=== PATIENT | male | born 1955 | race Caucasian/White ===

== ENCOUNTER → 2016-04-08 | Outpatient (CLI) | payer MEDICARE, OTHER ==
[~2016-04-08] MED LIST: ACTOS30 MG PO; CENTRUM SILVER1 CTB PO; CENTRUM SILVER1 TA1 PO; COREG 3.123.125 MG/T PO; COUMADIN 1010 MG/TAB PO; COUMADIN 5MG5 MG/TAB PO; COUMADIN 77.5 MG/TAB PO; COZAAR 50MG50 MG/TAB PO; DARVOCET N 101 UDTAB PO; DARVOCET-N-101 UDTAB PO; FERROUS SU325 MG/TAB PO; FIBER0.52 GM PO; FISH OIL CONC1000 MG PO; GLUCOPHAGE1000 MG PO; GLUCOSAMINE/CHONDROI PO; GLUCOTROL 5M5 MG/TAB PO; HUMALOG100 U/ML SQ; HUMIRA40 MG/0.1 SC; HUMIRA40 MG/0.8 SQ; HUMULIN R 10100 U/ML SC; JANUVIA 100MG100 MG PO; LANTUS100 U/ML SQ; LIPITOR 10MG10 MG PO; LOPRESSOR 550 MG/TAB PO; LUTEIN20 M1 PO; LUTEIN8MG PO; MAREPA1200 MG PO; METAMUCIL FIBE1 EACH PO; METAMUCIL MUL0.52 GM PO; METFORMIN500 MG PO; NESINA PO; PRILOSEC 20MG20 MG PO; REMICADE V100 MG/VIA IV; TYLENOL 8 HR PO; ULTRAM 50MG TAB50 MG PO; ULTRAM50 MG PO; VITAMIN B COMPL1 T16 PO; VITAMIN B-1000 MCG/T PO; VITAMIN C BUFF500 MG PO; VITAMIN C1 TAB PO; VITAMIN C500 MG PO; VITAMIN D1000 IU PO; VITAMIN D2000 I1 PO; VITAMIN D31000 I1 PO; ZESTRIL 5MG5 MG PO; ZOCOR 20MG20 MG PO
== END ==
LOC: SUN.DIA 10:30
DX: E11.65 Type 2 diabetes mellitus with hyperglycemia (principal); Z79.84 Long term (current) use of oral hypoglycemic drugs; Z79.4 Long term (current) use of insulin; E66.9 Obesity, unspecified; Z71.3 Dietary counseling and surveillance; E78.5 Hyperlipidemia, unspecified; I10 Essential (primary) hypertension; K51.90 Ulcerative colitis, unspecified, without complications; I73.9 Peripheral vascular disease, unspecified; M06.9 Rheumatoid arthritis, unspecified

== ENCOUNTER → 2016-05-19 | Outpatient (CLI) | payer MEDICARE, OTHER ==
[2016-05-19 14:23] LABS: INR 2.6 (0.8-3.0); PROTHROMBIN TIME 29.3 SECONDS (9.7-12.8)
== END ==
LOC: COL.LAB 13:36
PROVIDERS: Internal Medicine Interventional Cardiology
DX: R60.0 Localized edema (principal)

== ENCOUNTER 2016-05-22 06:33 | Observation (INO) | payer MEDICARE, OTHER ==
[2016-05-22] VITALS (155 sets, daily range): PULSE 82; TEMP 98.4; O2SAT 91–100
[~2016-05-22] VITALS: Ht 170.2 cm; Wt 119.1 kg
[~2016-05-22 06:33] MED LIST changes: -CENTRUM SILVER1 CTB PO; -COZAAR 50MG50 MG/TAB PO; -FIBER0.52 GM PO; -GLUCOPHAGE1000 MG PO; -HUMIRA40 MG/0.8 SQ; -LUTEIN20 M1 PO; -LUTEIN8MG PO; -METAMUCIL FIBE1 EACH PO; -METAMUCIL MUL0.52 GM PO; -TYLENOL 8 HR PO; -VITAMIN D1000 IU PO; -VITAMIN D31000 I1 PO
[2016-05-22 07:05] LABS: BASO # 0.1 (0.0-0.2); BASO % 0.7 % (0.0-2.0); EOS # 0.3 (0.0-0.7); EOS % 3.1 % (0-4.0); GRAN # 5.6 (1.4-6.5); GRAN % 69.4 % (42.2-75.2); HEMATOCRIT 38.5 % (42.0-52.0); HEMOGLOBIN 12.4 g/dl (13.5-18.0); LYMPH # 1.4 (1.2-3.4); LYMPH % 17.3 % (20.0-51.0); MEAN CELL VOLUME 95 fl (80.0-100.0); MEAN CORPUSCULAR HEMOGLOBIN 31 pg (27.0-31.0); MEAN CORPUSCULAR HGB CONC 32 g/dl (33.0-37.0); MEAN PLATELET VOLUME 9.8 fl (7.4-10.4); MONO # 0.7 (0.1-0.6); MONO % 8.9 % (1.7-9.3); PLATELET COUNT 255 K/mm3 (130-400); RED BLOOD COUNT 4.04 M/mm3 (4.20-5.60); REDCELL DISTRIBUTION WIDTH-CV 13.4 % (11.5-14.5); WHITE BLOOD COUNT 8.1 K/mm3 (4.8-10.8)
[2016-05-22 07:10] LABS: INR 1.9 (0.8-3.0); PROTHROMBIN TIME 21.4 SECONDS (9.7-12.8)
[2016-05-22 07:15] LABS: CALCIUM 9.2 mg/dL (8.4-10.2); CREATININE, serum 0.94 mg/dL (0.66-1.25); POTASSIUM 4.3 mmol/L (3.4-5.0)
[2016-05-22] MEDS ORDERED: VITAMIN D1000 IU PO (07:30)
[2016-05-22] MEDS ORDERED: LUTEIN8MG PO (07:35)
[2016-05-22] MEDS ORDERED: FIBER0.52 GM PO (07:36)
[2016-05-22] MEDS ORDERED: TYLENOL 8 HR PO (07:36)
== END 2016-05-22 09:30 | disposition left against medical advice (07) ==
LOC: ICU 06:33
PROVIDERS: Internal Medicine Interventional Cardiology
DX: I82.402 Acute embolism and thrombosis of unspecified deep veins of left lower extremity (principal)
CPT/HCPCS: G0378; G0379

== ENCOUNTER → 2016-07-14 | Outpatient (CLI) | payer MEDICARE, OTHER ==
[~2016-07-14] MED LIST changes: +CENTRUM SILVER1 CTB PO; +COZAAR 50MG50 MG/TAB PO; +FIBER0.52 GM PO; +GLUCOPHAGE1000 MG PO; +HUMIRA40 MG/0.8 SQ; +LUTEIN20 M1 PO; +LUTEIN8MG PO; +METAMUCIL FIBE1 EACH PO; +METAMUCIL MUL0.52 GM PO; +TYLENOL 8 HR PO; +VITAMIN D1000 IU PO; +VITAMIN D31000 I1 PO
== END ==
LOC: SUN.DIA 07-01 16:04
DX: E11.65 Type 2 diabetes mellitus with hyperglycemia (principal); E66.9 Obesity, unspecified; Z68.41 Body mass index [BMI] 40.0-44.9, adult; Z71.3 Dietary counseling and surveillance; E78.5 Hyperlipidemia, unspecified; I10 Essential (primary) hypertension

== ENCOUNTER → 2016-10-01 | Outpatient (CLI) | payer MEDICARE, OTHER | LOC: SUN.DIA 09:30 | DX: E11.9 Type 2 diabetes mellitus without complications (principal); Z79.4 Long term (current) use of insulin; E78.5 Hyperlipidemia, unspecified; I10 Essential (primary) hypertension; E66.9 Obesity, unspecified; Z68.41 Body mass index [BMI] 40.0-44.9, adult; Z71.3 Dietary counseling and surveillance | CPT/HCPCS: G0108 ==

== ENCOUNTER 2016-12-02 08:32 | Day surgery (SDC) | payer MEDICARE, OTHER ==
[~2016-12-02] VITALS: Ht 170.2 cm; Wt 122.5 kg
[~2016-12-02 08:32] MED LIST changes: -CENTRUM SILVER1 CTB PO; -COZAAR 50MG50 MG/TAB PO; -GLUCOPHAGE1000 MG PO; -HUMIRA40 MG/0.8 SQ; -LUTEIN20 M1 PO; -METAMUCIL FIBE1 EACH PO; -METAMUCIL MUL0.52 GM PO; -VITAMIN D31000 I1 PO
[2016-12-02 09:01] VITALS: BP 147/81; PULSE 74; TEMP 97.8
[2016-12-02] MEDS ORDERED: HUMIRA40 MG/0.8 SQ (09:13)
[2016-12-02] MEDS ORDERED: HUMALOG100 U/ML SQ ×2 (09:14→09:15)
[2016-12-02] MEDS ORDERED: LANTUS100 U/ML SQ (09:26)
[2016-12-02] MEDS ORDERED: METAMUCIL FIBE1 EACH PO (09:28)
[2016-12-02] MEDS ORDERED: TYLENOL 8 HR PO (09:28)
[2016-12-02] MEDS ORDERED: METAMUCIL MUL0.52 GM PO (09:29)
[2016-12-02] MEDS ORDERED: CENTRUM SILVER1 CTB PO (09:29)
[2016-12-02] MEDS ORDERED: VITAMIN D31000 I1 PO (09:31)
[2016-12-02] MEDS ORDERED: VITAMIN C500 MG PO (09:31)
[2016-12-02] MEDS ORDERED: LOPRESSOR 550 MG/TAB PO (09:32)
[2016-12-02] MEDS ORDERED: GLUCOPHAGE1000 MG PO (09:32)
[2016-12-02] MEDS ORDERED: COUMADIN 5MG5 MG/TAB PO (09:33)
[2016-12-02] MEDS ORDERED: COUMADIN 77.5 MG/TAB PO (09:34)
[2016-12-02] MEDS ORDERED: COZAAR 50MG50 MG/TAB PO (09:35)
[2016-12-02] MEDS ORDERED: ZOCOR 20MG20 MG PO (09:36)
[2016-12-02] MEDS ORDERED: LUTEIN20 M1 PO (09:36)
[2016-12-02] MEDS ORDERED: PRILOSEC 20MG20 MG PO (09:36)
[2016-12-02 11:50] VITALS: BP 133/78; PULSE 81
[2016-12-02 12:05] VITALS: BP 120/73; PULSE 79
[2016-12-02 12:20] VITALS: BP 130/83; PULSE 84
[2016-12-02 16:18] VITALS: BP 130/86; PULSE 80
== END 2016-12-02 12:40 | disposition home or self-care (01) ==
LOC: SDCO 08:32
DX: K63.5 Polyp of colon (principal); K51.00 Ulcerative (chronic) pancolitis without complications; K64.0 First degree hemorrhoids; K21.9 Gastro-esophageal reflux disease without esophagitis; E11.9 Type 2 diabetes mellitus without complications; G47.33 Obstructive sleep apnea (adult) (pediatric); Z79.01 Long term (current) use of anticoagulants; Z79.4 Long term (current) use of insulin; Z79.84 Long term (current) use of oral hypoglycemic drugs
CPT/HCPCS: OP; J2250; J2704; J7030

== ENCOUNTER → 2017-01-05 | Outpatient (CLI) | payer MEDICARE, OTHER ==
[~2017-01-05] MED LIST changes: +CENTRUM SILVER1 CTB PO; +COZAAR 50MG50 MG/TAB PO; +GLUCOPHAGE1000 MG PO; +HUMIRA40 MG/0.8 SQ; +LUTEIN20 M1 PO; +METAMUCIL FIBE1 EACH PO; +METAMUCIL MUL0.52 GM PO; +VITAMIN D31000 I1 PO
== END ==
LOC: SUN.DIA 12-30 09:26
DX: E11.9 Type 2 diabetes mellitus without complications (principal); Z79.4 Long term (current) use of insulin; E78.5 Hyperlipidemia, unspecified; I10 Essential (primary) hypertension; E66.9 Obesity, unspecified; Z68.41 Body mass index [BMI] 40.0-44.9, adult; Z71.3 Dietary counseling and surveillance
CPT/HCPCS: G0108

== ENCOUNTER → 2017-03-02 | Outpatient (CLI) | payer MEDICARE, OTHER | LOC: SUN.DIA 08:43 | DX: E11.9 Type 2 diabetes mellitus without complications (principal); Z79.4 Long term (current) use of insulin; E78.5 Hyperlipidemia, unspecified; I10 Essential (primary) hypertension; E66.9 Obesity, unspecified; Z68.41 Body mass index [BMI] 40.0-44.9, adult; Z71.3 Dietary counseling and surveillance | CPT/HCPCS: G0108 ==

== ENCOUNTER → 2017-05-04 | Outpatient (CLI) | payer MEDICARE, OTHER | LOC: SUN.DIA 10:34 | DX: E11.9 Type 2 diabetes mellitus without complications (principal); Z79.4 Long term (current) use of insulin; E78.5 Hyperlipidemia, unspecified; I10 Essential (primary) hypertension; E66.9 Obesity, unspecified; Z68.41 Body mass index [BMI] 40.0-44.9, adult; Z71.3 Dietary counseling and surveillance | CPT/HCPCS: G0108 ==

== ENCOUNTER 2017-05-13 20:55 | Emergency (ER) | payer MEDICARE, OTHER ==
[~2017-05-13] VITALS: Ht 170.2 cm; Wt 118.2 kg
[2017-05-13 21:10] VITALS: TEMP 98.7
[2017-05-13 22:02] LABS: BASO # 0.1 (0.0-0.2); BASO % 0.5 % (0.0-2.0); EOS # 0.2 (0.0-0.7); EOS % 2.4 % (0-4.0); GRAN # 5.5 (1.4-6.5); GRAN % 56.5 % (42.2-75.2); HEMATOCRIT 41.3 % (42.0-52.0); HEMOGLOBIN 13.2 g/dl (13.5-18.0); LYMPH # 2.9 (1.2-3.4); LYMPH % 29.8 % (20.0-51.0); MEAN CELL VOLUME 91 fl (80.0-100.0); MEAN CORPUSCULAR HEMOGLOBIN 29 pg (27.0-31.0); MEAN CORPUSCULAR HGB CONC 32 g/dl (33.0-37.0); MEAN PLATELET VOLUME 9.9 fl (7.4-10.4); MONO % 10.1 % (1.7-9.3); PLATELET COUNT 298 K/mm3 (130-400); RED BLOOD COUNT 4.53 M/mm3 (4.20-5.60); REDCELL DISTRIBUTION WIDTH-CV 14.2 % (11.5-14.5)
[2017-05-13 22:08] LABS: COLLECTION METHOD CLEAN CATCH
[2017-05-13 22:09] LABS: ACETONE,SERUM NEGATIVE
[2017-05-13 22:13] LABS: INR 2.3 (0.8-3.0); PROTHROMBIN TIME 27.5 SECONDS (9.7-12.8)
[2017-05-13 22:15] LABS: ALANINE AMINOTRANSFERASE 39 U/L (21-72); ALBUMIN 4.5 gm/dL (3.5-5.0); ALKALINE PHOSPHATASE 70 U/L (50-136); ANION GAP 17 mmol/L (7-16); AST,SGOT 31 U/L (15-37); BILIRUBIN,TOTAL 0.4 mg/dL (0.0-1.0); BLOOD UREA NITROGEN 17 mg/dL (9-20); CALCIUM 9.8 mg/dL (8.4-10.2); CARBON DIOXIDE 19 mmol/L (22-30); CHLORIDE 99 mmol/L (98-107); CREATININE, serum 1.09 mg/dL (0.66-1.25); GLUCOSE 197 mg/dL (74-106); LIPASE 60 U/L (23-300); POTASSIUM 4.3 mmol/L (3.4-5.0); SODIUM 135 mmol/L (137-145); TOTAL PROTEIN 7.9 gm/dL (6.4-8.2)
[2017-05-13 22:46] LABS: PH 5 (5-8); SQUAMOUS EPITHELIAL 0-2 /hpf; URINE APPEARANCE Clear; URINE BILIRUBIN Negative (NEGATIVE); URINE BLOOD Negative (NEGATIVE); URINE COLOR Yellow; URINE GLUCOSE 3+ (NEGATIVE); URINE KETONE Trace (NEGATIVE); URINE LEUKOCYTE ESTERASE Negative (NEGATIVE); URINE NITRATE Negative (NEGATIVE); URINE PROTEIN(semi-quant) 1+ (NEGATIVE); URINE RBC 0-2 /hpf; URINE UROBILINOGEN Negative (NEGATIVE)
[2017-05-13 22:47] LABS: MUCOUS Present /lpf; URINE BACTERIA Rare /hpf
[2017-05-13] MEDS ORDERED: COUMADIN 1010 MG/TAB PO (23:15)
[2017-05-13] MEDS ORDERED: COUMADIN 77.5 MG/TAB PO (23:15)
[2017-05-13] MEDS ORDERED: HUMALOG100 U/ML SQ (23:17)
[2017-05-13] MEDS ORDERED: LUTEIN20 M1 PO (23:18)
[2017-05-13] MEDS ORDERED: HUMIRA40 MG/0.8 SQ (23:18)
[2017-05-13] MEDS ORDERED: NORCO 325 MG-51 TAB PO (23:34)
[2017-05-13] MEDS ORDERED: ZOFRAN 4MG T4 MG/TAB PO (23:34)
[2017-05-14 00:16] VITALS: BP 128/81; PULSE 89
== END 2017-05-14 00:15 | disposition home or self-care (01) ==
LOC: COL.ER 20:55
PROVIDERS: Emergency Medicine
DX: R10.10 Upper abdominal pain, unspecified (principal); E11.9 Type 2 diabetes mellitus without complications; I10 Essential (primary) hypertension; E78.5 Hyperlipidemia, unspecified; K51.90 Ulcerative colitis, unspecified, without complications; Z86.711 Personal history of pulmonary embolism; Z86.718 Personal history of other venous thrombosis and embolism; Z79.01 Long term (current) use of anticoagulants; Z79.4 Long term (current) use of insulin
CPT/HCPCS: J3010; J7030

== ENCOUNTER → 2017-06-01 | Outpatient (CLI) | payer MEDICARE, OTHER ==
[~2017-06-01] MED LIST changes: +NORCO 325 MG-51 TAB PO; +ZOFRAN 4MG T4 MG/TAB PO
== END ==
LOC: SUN.DIA 10:11
DX: E11.9 Type 2 diabetes mellitus without complications (principal); Z79.4 Long term (current) use of insulin; E78.5 Hyperlipidemia, unspecified; I10 Essential (primary) hypertension; E66.9 Obesity, unspecified; Z68.41 Body mass index [BMI] 40.0-44.9, adult; Z71.3 Dietary counseling and surveillance
CPT/HCPCS: G0108

== ENCOUNTER → 2017-06-04 | Outpatient (CLI) | payer MEDICARE, OTHER | LOC: SUN.DIA 10:37 | DX: E11.9 Type 2 diabetes mellitus without complications (principal); Z79.4 Long term (current) use of insulin; E78.5 Hyperlipidemia, unspecified; I10 Essential (primary) hypertension; E66.9 Obesity, unspecified; Z68.41 Body mass index [BMI] 40.0-44.9, adult; Z71.3 Dietary counseling and surveillance | CPT/HCPCS: G0108 ==

== ENCOUNTER → 2017-06-17 | Outpatient (CLI) | payer MEDICARE, OTHER | LOC: SUN.DIA 09:31 | DX: Z01.89 Encounter for other specified special examinations (principal) ==

== ENCOUNTER → 2017-07-13 | Outpatient (CLI) | payer MEDICARE, OTHER | LOC: SUN.DIA 11:15 | DX: E11.9 Type 2 diabetes mellitus without complications (principal); Z79.4 Long term (current) use of insulin; E78.5 Hyperlipidemia, unspecified; I10 Essential (primary) hypertension; E66.9 Obesity, unspecified; Z68.41 Body mass index [BMI] 40.0-44.9, adult; Z71.3 Dietary counseling and surveillance | CPT/HCPCS: G0108 ==

== ENCOUNTER 2017-08-28 23:30 | Emergency (ER) | payer MEDICARE, OTHER ==
[~2017-08-28] VITALS: Ht 170.2 cm; Wt 118.2 kg
[~2017-08-28 23:30] MED LIST changes: +HUMIRA40 MG/0.1 SQ
[2017-08-28 23:35] VITALS: TEMP 97.2
[2017-08-28] MEDS ORDERED: DICLOFENAC SOD2.5 ML TOP (23:48)
[2017-08-28] MEDS ORDERED: DOXYCYCLINE HY100 MG PO (23:49)
[2017-08-28] MEDS ORDERED: BYDUREON PEN2 MG SQ (23:50)
[2017-08-28] MEDS ORDERED: MELATONIN5 M1 SL (23:53)
[2017-08-28] MEDS ORDERED: COUMADIN 5MG5 MG/TAB PO ×2 (23:55→23:56)
[2017-08-29 00:10] LABS: BASO # 0.1 (0.0-0.2); BASO % 0.4 % (0.0-2.0); EOS # 1.4 (0.0-0.7); EOS % 10.9 % (0-4.0); GRAN # 7.7 (1.4-6.5); GRAN % 61.5 % (42.2-75.2); HEMOGLOBIN 11.2 g/dl (13.5-18.0); LYMPH # 2.2 (1.2-3.4); LYMPH % 17.8 % (20.0-51.0); MEAN CELL VOLUME 90 fl (80.0-100.0); MEAN CORPUSCULAR HEMOGLOBIN 29 pg (27.0-31.0); MEAN CORPUSCULAR HGB CONC 33 g/dl (33.0-37.0); MEAN PLATELET VOLUME 9.2 fl (7.4-10.4); MONO # 1.1 (0.1-0.6); MONO % 8.4 % (1.7-9.3); PLATELET COUNT 283 K/mm3 (130-400); RED BLOOD COUNT 3.82 M/mm3 (4.20-5.60); REDCELL DISTRIBUTION WIDTH-CV 15.8 % (11.5-14.5)
[2017-08-29 00:12] LABS: HEMATOCRIT 34.5 % (42.0-52.0)
[2017-08-29 00:26] LABS: ALANINE AMINOTRANSFERASE 33 U/L (21-72); ALBUMIN 3.4 gm/dL (3.5-5.0); ALKALINE PHOSPHATASE 63 U/L (50-136); ANION GAP 14 mmol/L (7-16); AST,SGOT 25 U/L (15-37); BILIRUBIN,TOTAL 0.3 mg/dL (0.0-1.0); BLOOD UREA NITROGEN 17 mg/dL (9-20); C-REACTIVE PROTEIN 5.4 mg/dL (0.0-0.9); CARBON DIOXIDE 23 mmol/L (22-30); CHLORIDE 104 mmol/L (98-107); CREATININE, serum 0.83 mg/dL (0.66-1.25); GLUCOSE 154 mg/dL (74-106); LIPASE 32 U/L (23-300); POTASSIUM 4.1 mmol/L (3.4-5.0); SODIUM 141 mmol/L (137-145); TOTAL PROTEIN 7.1 gm/dL (6.4-8.2)
[2017-08-29 00:37] LABS: TROPONIN-I < 0.012 ng/mL (0.000-0.034)
[2017-08-29 00:42] LABS: PROTHROMBIN TIME 34.1 SECONDS (9.7-12.8)
[2017-08-29 00:45] LABS: D-DIMER < 200.00 ng/mLDDu (200-230)
[2017-08-29 01:01] LABS: COLLECTION METHOD CLEAN CATCH
[2017-08-29 01:06] LABS: MUCOUS Present /lpf; PH 5 (5-8); SQUAMOUS EPITHELIAL None Seen /hpf; URINE APPEARANCE Clear; URINE BACTERIA None Seen /hpf; URINE BILIRUBIN Negative (NEGATIVE); URINE BLOOD Negative (NEGATIVE); URINE COLOR Yellow; URINE GLUCOSE 3+ (NEGATIVE); URINE KETONE Negative (NEGATIVE); URINE LEUKOCYTE ESTERASE Negative (NEGATIVE); URINE NITRATE Negative (NEGATIVE); URINE PROTEIN(semi-quant) 1+ (NEGATIVE); URINE RBC 0-2 /hpf; URINE UROBILINOGEN Negative (NEGATIVE)
[2017-08-29 01:15] VITALS: BP 132/80; PULSE 98
[2017-08-29] MEDS ORDERED: NORCO 325 MG-51 TAB PO (01:15)
== END 2017-08-29 01:36 | disposition home or self-care (01) ==
LOC: COL.ER 23:30
PROVIDERS: Physician Assistant
DX: R10.31 Right lower quadrant pain (principal); E78.5 Hyperlipidemia, unspecified; E11.9 Type 2 diabetes mellitus without complications; I10 Essential (primary) hypertension; Z79.4 Long term (current) use of insulin; Z79.01 Long term (current) use of anticoagulants; Z86.718 Personal history of other venous thrombosis and embolism; Z86.711 Personal history of pulmonary embolism
CPT/HCPCS: J1170; J7030

== ENCOUNTER 2017-09-13 13:12 | Observation (INO) | payer MEDICARE, OTHER ==
[~2017-09-13] VITALS: Ht 170.2 cm; Wt 112.1 kg
[~2017-09-13 13:12] MED LIST changes: +BYDUREON PEN2 MG SQ; +DICLOFENAC SOD2.5 ML TOP; +DOXYCYCLINE HY100 MG PO; +MELATONIN5 M1 SL
[2017-09-13 13:39] LABS: BASO % 0.2 % (0.0-2.0); GRAN # 10.8 (1.4-6.5); GRAN % 75.4 % (42.2-75.2); HEMOGLOBIN 11.3 g/dl (13.5-18.0); LYMPH # 1.3 (1.2-3.4); LYMPH % 9.1 % (20.0-51.0); MEAN CELL VOLUME 90 fl (80.0-100.0); MEAN CORPUSCULAR HEMOGLOBIN 29 pg (27.0-31.0); MEAN CORPUSCULAR HGB CONC 32 g/dl (33.0-37.0); MEAN PLATELET VOLUME 9.3 fl (7.4-10.4); MONO # 1.2 (0.1-0.6); PLATELET COUNT 334 K/mm3 (130-400); RED BLOOD COUNT 3.88 M/mm3 (4.20-5.60); REDCELL DISTRIBUTION WIDTH-CV 15.9 % (11.5-14.5)
[2017-09-13 13:40] LABS: HEMATOCRIT 34.9 % (42.0-52.0)
[2017-09-13 13:45] LABS: INR 2.2 (0.8-3.0); PROTHROMBIN TIME 24.8 SECONDS (9.7-12.8)
[2017-09-13 13:50] LABS: ALBUMIN 3.8 gm/dL (3.5-5.0); BILIRUBIN,TOTAL 0.6 mg/dL (0.0-1.0); CALCIUM 9.3 mg/dL (8.4-10.2); CREATININE, serum 0.84 mg/dL (0.66-1.25); TOTAL PROTEIN 7.8 gm/dL (6.4-8.2)
[2017-09-13 14:01] LABS: ARTERIAL BLD GAS O2 SATURATION 93.3 % (92-100); ARTERIAL BLD GAS TCO2 CT 23.1; ARTERIAL BLOOD GAS BASE EXCESS -0.5 (-2-2); ARTERIAL BLOOD GAS HCO3 22.2 meq/L (22-26); ARTERIAL BLOOD GAS PCO2 30.5 mmHg (35-45); ARTERIAL BLOOD GAS pH 7.48 (7.35-7.45)
[2017-09-13 14:21] LABS: COLLECTION METHOD CLEAN CATCH
[2017-09-13 14:36] LABS: MUCOUS Present /lpf; PH 5 (5-8); SQUAMOUS EPITHELIAL None Seen /hpf; URINE APPEARANCE Clear; URINE BACTERIA None Seen /hpf; URINE BILIRUBIN Negative (NEGATIVE); URINE BLOOD Negative (NEGATIVE); URINE COLOR Yellow; URINE GLUCOSE Negative (NEGATIVE); URINE KETONE 1+ (NEGATIVE); URINE LEUKOCYTE ESTERASE Negative (NEGATIVE); URINE NITRATE Negative (NEGATIVE); URINE PROTEIN(semi-quant) 1+ (NEGATIVE); URINE RBC 0-2 /hpf; URINE UROBILINOGEN Negative (NEGATIVE)
[2017-09-13 16:41] VITALS: BP 145/76; PULSE 87; TEMP 99.2
[2017-09-13] MEDS ORDERED: ZOCOR 20MG20 MG PO (17:12)
[2017-09-13] MEDS ORDERED: PRILOSEC 20MG20 MG PO (17:12)
[2017-09-13] MEDS ORDERED: TOPROL XL 50MG50 MG PO (17:13)
[2017-09-13] MEDS ORDERED: VITAMIN C500 MG PO (17:14)
[2017-09-13] MEDS ORDERED: METAMUCIL MUL0.52 GM PO (17:14)
[2017-09-13 19:15] VITALS: BP 139/71; PULSE 96; TEMP 98.1
[2017-09-14] VITALS (7 sets, daily range): BP systolic 110–154; BP diastolic 58–85; PULSE 90–112; TEMP 97.6–100.2
[2017-09-14 06:43] LABS: BASO % 0.2 % (0.0-2.0); EOS # 1.2 (0.0-0.7); EOS % 9.2 % (0-4.0); GRAN # 9.1 (1.4-6.5); GRAN % 70.1 % (42.2-75.2); HEMOGLOBIN 10.7 g/dl (13.5-18.0); INR 2.1 (0.8-3.0); LYMPH # 1.5 (1.2-3.4); LYMPH % 11.6 % (20.0-51.0); MEAN CELL VOLUME 92 fl (80.0-100.0); MEAN CORPUSCULAR HEMOGLOBIN 29 pg (27.0-31.0); MEAN CORPUSCULAR HGB CONC 32 g/dl (33.0-37.0); MEAN PLATELET VOLUME 9.5 fl (7.4-10.4); MONO # 1.1 (0.1-0.6); MONO % 8.5 % (1.7-9.3); PLATELET COUNT 318 K/mm3 (130-400); PROTHROMBIN TIME 23.8 SECONDS (9.7-12.8); RED BLOOD COUNT 3.64 M/mm3 (4.20-5.60); REDCELL DISTRIBUTION WIDTH-CV 15.9 % (11.5-14.5)
[2017-09-14 06:50] LABS: HEMATOCRIT 33.4 % (42.0-52.0)
[2017-09-14 06:55] LABS: CALCIUM 8.5 mg/dL (8.4-10.2); CREATININE, serum 0.66 mg/dL (0.66-1.25); POTASSIUM 3.8 mmol/L (3.4-5.0)
[2017-09-15 04:26] VITALS: BP 149/73; PULSE 109; TEMP 99.2
[2017-09-15 06:43] LABS: BASO % 0.2 % (0.0-2.0); EOS # 1.4 (0.0-0.7); EOS % 12.5 % (0-4.0); GRAN # 7.2 (1.4-6.5); GRAN % 65.6 % (42.2-75.2); LYMPH # 1.4 (1.2-3.4); LYMPH % 12.4 % (20.0-51.0); MEAN CELL VOLUME 91 fl (80.0-100.0); MEAN CORPUSCULAR HEMOGLOBIN 29 pg (27.0-31.0); MEAN CORPUSCULAR HGB CONC 32 g/dl (33.0-37.0); MEAN PLATELET VOLUME 9.8 fl (7.4-10.4); MONO % 8.9 % (1.7-9.3); PLATELET COUNT 299 K/mm3 (130-400); RED BLOOD COUNT 3.45 M/mm3 (4.20-5.60); REDCELL DISTRIBUTION WIDTH-CV 16.3 % (11.5-14.5)
[2017-09-15 06:47] LABS: HEMATOCRIT 31.5 % (42.0-52.0)
[2017-09-15 06:56] LABS: CALCIUM 8.3 mg/dL (8.4-10.2); CREATININE, serum 0.65 mg/dL (0.66-1.25)
[2017-09-15 07:11] VITALS: BP 129/71; PULSE 90; TEMP 99.2
[2017-09-15] MEDS ORDERED: OMNICEF 300MG300 MG PO (09:00)
[2017-09-15] MEDS ORDERED: NOVOLIN 70/30 710 ML SQ (09:04)
[2017-09-15] MEDS ORDERED: DIABETA 5MG5 MG/TAB PO (09:05)
[2017-09-15] MEDS ORDERED: PROMETHAZINE V473 M2 PO (09:07)
[2017-09-15] MEDS ORDERED: INSULIN SYRING1 EA11 SQ (09:19)
== END 2017-09-15 12:27 | disposition home or self-care (01) ==
LOC: COL.ER 13:12 → MEDICAL 14:54
PROVIDERS: Family Medicine; Physician Assistant
DX: A41.9 Sepsis, unspecified organism (principal); J18.1 Lobar pneumonia, unspecified organism; R00.0 Tachycardia, unspecified; I10 Essential (primary) hypertension; E11.9 Type 2 diabetes mellitus without complications; K51.90 Ulcerative colitis, unspecified, without complications; Z79.01 Long term (current) use of anticoagulants; Z79.4 Long term (current) use of insulin; Z86.711 Personal history of pulmonary embolism; Z86.718 Personal history of other venous thrombosis and embolism; Z80.8 Family history of malignant neoplasm of other organs or systems
CPT/HCPCS: 99223-AI; 99239; G0378; G8978-GP; G8979-GP; J0456; J0696; J1815; J7030; J7050

== ENCOUNTER → 2017-09-22 | Outpatient (CLI) | payer MEDICARE, OTHER ==
[~2017-09-22] MED LIST changes: +DIABETA 5MG5 MG/TAB PO; +INSULIN SYRING1 EA11 SQ; +NOVOLIN 70/30 710 ML SQ; +OMNICEF 300MG300 MG PO; +PROMETHAZINE V473 M2 PO; +TOPROL XL 50MG50 MG PO
== END ==
LOC: SUN.DIA 09-14 10:03
DX: E11.9 Type 2 diabetes mellitus without complications (principal); Z79.4 Long term (current) use of insulin; E78.5 Hyperlipidemia, unspecified; I10 Essential (primary) hypertension; E66.9 Obesity, unspecified; Z68.41 Body mass index [BMI] 40.0-44.9, adult; Z71.3 Dietary counseling and surveillance
CPT/HCPCS: G0108

== ENCOUNTER → 2017-11-23 | Outpatient (CLI) | payer MEDICARE, OTHER | LOC: SUN.DIA 13:16 | DX: E11.9 Type 2 diabetes mellitus without complications (principal); E78.5 Hyperlipidemia, unspecified; I10 Essential (primary) hypertension; E66.9 Obesity, unspecified | CPT/HCPCS: G0108 ==

== ENCOUNTER 2018-01-05 11:24 | Day surgery (SDC) | payer MEDICARE, OTHER ==
[~2018-01-05] VITALS: Ht 170.2 cm; Wt 116.7 kg
[2018-01-05 12:10] VITALS: BP 130/72; PULSE 74; TEMP 98
[2018-01-05] MEDS ORDERED: DICLOFENAC SOD2.5 ML TOP (12:23)
[2018-01-05] MEDS ORDERED: GLUCOPHAGE XR500 M1 PO (12:26)
[2018-01-05] MEDS ORDERED: MULTI VITAMINS1 TAB PO (12:28)
[2018-01-05] MEDS ORDERED: LOPRESSOR 550 MG/TAB PO (12:28)
[2018-01-05] MEDS ORDERED: PROMETHAZINE V473 M2 PO (12:31)
[2018-01-05] MEDS ORDERED: TRIAMCINOLONE A15 G3 TP (12:33)
[2018-01-05] MEDS ORDERED: VITAMIN D31000 I1 PO (12:34)
[2018-01-05] MEDS ORDERED: VITAMIN C500 MG PO (12:34)
[2018-01-05] MEDS ORDERED: LOVENOX120 MG/0.8 SQ (12:37)
[2018-01-05 13:30] VITALS: BP 111/70; PULSE 87; TEMP 98.1
[2018-01-05 13:45] VITALS: BP 125/82; PULSE 73
[2018-01-05 14:00] VITALS: BP 134/74; PULSE 76
== END 2018-01-05 14:22 | disposition home or self-care (01) ==
LOC: SDCO 11:24
DX: K51.00 Ulcerative (chronic) pancolitis without complications (principal); K64.0 First degree hemorrhoids; E78.5 Hyperlipidemia, unspecified; E11.9 Type 2 diabetes mellitus without complications; I10 Essential (primary) hypertension; G47.33 Obstructive sleep apnea (adult) (pediatric); K21.9 Gastro-esophageal reflux disease without esophagitis; M19.90 Unspecified osteoarthritis, unspecified site; Z79.01 Long term (current) use of anticoagulants; Z79.4 Long term (current) use of insulin; Z88.1 Allergy status to other antibiotic agents; Z88.8 Allergy status to other drugs, medicaments and biological substances; Z86.718 Personal history of other venous thrombosis and embolism; Z86.711 Personal history of pulmonary embolism
CPT/HCPCS: OP; J2704; J7030

== ENCOUNTER → 2018-01-08 | Outpatient (CLI) | payer MEDICARE, OTHER ==
[~2018-01-08] MED LIST changes: +GLUCOPHAGE XR500 M1 PO; +LOVENOX120 MG/0.8 SQ; +MULTI VITAMINS1 TAB PO; +TRIAMCINOLONE A15 G3 TP
== END ==
LOC: COL.LAB 09:31
DX: K51.00 Ulcerative (chronic) pancolitis without complications (principal)

== ENCOUNTER → 2018-03-01 | Outpatient (CLI) | payer MEDICARE, OTHER | LOC: SUN.DIA 10:11 | DX: E11.9 Type 2 diabetes mellitus without complications (principal); E78.5 Hyperlipidemia, unspecified; I10 Essential (primary) hypertension; E66.9 Obesity, unspecified | CPT/HCPCS: G0108 ==

== ENCOUNTER 2018-03-22 13:00 | Outpatient (RCR) | payer MEDICARE, OTHER ==
[2018-03-08 14:16] LABS: HEMATOCRIT 39.9 % (42.0-52.0); HEMOGLOBIN 13.1 g/dl (13.5-18.0); MEAN CELL VOLUME 97 fl (80.0-100.0); MEAN CORPUSCULAR HEMOGLOBIN 32 pg (27.0-31.0); MEAN CORPUSCULAR HGB CONC 33 g/dl (33.0-37.0); MEAN PLATELET VOLUME 9.4 fl (7.4-10.4); PLATELET COUNT 226 K/mm3 (130-400); RED BLOOD COUNT 4.11 M/mm3 (4.20-5.60); REDCELL DISTRIBUTION WIDTH-CV 17.1 % (11.5-14.5)
[2018-03-08 15:18] VITALS: BP 145/72; PULSE 84; TEMP 98.3
[~2018-03-22] VITALS: Ht 170.2 cm; Wt 120.0 kg
[2018-03-22 12:53] LABS: HEMATOCRIT 43.2 % (42.0-52.0); HEMOGLOBIN 14.3 g/dl (13.5-18.0); MEAN CELL VOLUME 98 fl (80.0-100.0); MEAN CORPUSCULAR HEMOGLOBIN 33 pg (27.0-31.0); MEAN CORPUSCULAR HGB CONC 33 g/dl (33.0-37.0); MEAN PLATELET VOLUME 9.5 fl (7.4-10.4); PLATELET COUNT 259 K/mm3 (130-400); REDCELL DISTRIBUTION WIDTH-CV 15.6 % (11.5-14.5)
[2018-03-22 13:08] VITALS: BP 133/66; PULSE 80; TEMP 99
[2018-03-22] MEDS ORDERED: NOVOLIN 70/30 710 ML SQ (13:16)
== END 2018-03-22 15:46 | disposition home or self-care (01) ==
LOC: EUO 13:00
PROVIDERS: Internal Medicine Gastroenterology
DX: K51.00 Ulcerative (chronic) pancolitis without complications (principal)
CPT/HCPCS: J3380; J7050

== ENCOUNTER 2018-04-20 13:24 | Outpatient (CLI) | payer MEDICARE, OTHER ==
[~2018-04-20] VITALS: Ht 170.2 cm; Wt 122.9 kg
[2018-04-20 13:51] LABS: HEMATOCRIT 39.5 % (42.0-52.0); MEAN CELL VOLUME 100 fl (80.0-100.0); MEAN CORPUSCULAR HEMOGLOBIN 33 pg (27.0-31.0); MEAN CORPUSCULAR HGB CONC 33 g/dl (33.0-37.0); MEAN PLATELET VOLUME 9.3 fl (7.4-10.4); PLATELET COUNT 252 K/mm3 (130-400); RED BLOOD COUNT 3.94 M/mm3 (4.20-5.60); REDCELL DISTRIBUTION WIDTH-CV 12.6 % (11.5-14.5)
[2018-04-20 15:11] VITALS: BP 148/81; PULSE 82; TEMP 97.4
== END 2018-04-20 15:39 | disposition home or self-care (01) ==
LOC: EUO 13:24
PROVIDERS: Internal Medicine Gastroenterology
DX: K51.00 Ulcerative (chronic) pancolitis without complications (principal); Z79.899 Other long term (current) drug therapy
CPT/HCPCS: J3380; J7050

== ENCOUNTER 2018-06-15 12:32 | Outpatient (CLI) | payer MEDICARE, OTHER ==
[~2018-06-15] VITALS: Ht 170.2 cm; Wt 123.0 kg
[2018-06-15 13:05] LABS: HEMATOCRIT 40.2 % (42.0-52.0); HEMOGLOBIN 13.2 g/dl (13.5-18.0); MEAN CELL VOLUME 101 fl (80.0-100.0); MEAN CORPUSCULAR HEMOGLOBIN 33 pg (27.0-31.0); MEAN CORPUSCULAR HGB CONC 33 g/dl (33.0-37.0); MEAN PLATELET VOLUME 9.5 fl (7.4-10.4); PLATELET COUNT 256 K/mm3 (130-400); RED BLOOD COUNT 3.99 M/mm3 (4.20-5.60); REDCELL DISTRIBUTION WIDTH-CV 13.4 % (11.5-14.5)
[2018-06-15 13:49] VITALS: BP 122/68; PULSE 79; TEMP 98.8
[2018-06-15] MEDS ORDERED: ZYRTEC 10MG10 MG PO (14:03)
== END 2018-06-15 15:16 | disposition home or self-care (01) ==
LOC: EUO 12:32
PROVIDERS: Internal Medicine Gastroenterology
DX: K51.00 Ulcerative (chronic) pancolitis without complications (principal); Z79.899 Other long term (current) drug therapy
CPT/HCPCS: J3380; J7050

== ENCOUNTER 2018-08-10 12:08 | Outpatient (CLI) | payer MEDICARE, OTHER ==
[~2018-08-10] VITALS: Ht 170.2 cm; Wt 124.0 kg
[~2018-08-10 12:08] MED LIST changes: +ZYRTEC 10MG10 MG PO
[2018-08-10 12:38] LABS: HEMOGLOBIN 13.6 g/dl (13.5-18.0); MEAN CELL VOLUME 102 fl (80.0-100.0); MEAN CORPUSCULAR HEMOGLOBIN 33 pg (27.0-31.0); MEAN CORPUSCULAR HGB CONC 32 g/dl (33.0-37.0); MEAN PLATELET VOLUME 9.3 fl (7.4-10.4); PLATELET COUNT 221 K/mm3 (130-400); RED BLOOD COUNT 4.12 M/mm3 (4.20-5.60)
[2018-08-10 13:20] VITALS: BP 112/70; PULSE 84; TEMP 98.1
[2018-08-10] MEDS ORDERED: ALLEGRA-D 24HR1 T24 PO (13:31)
[2018-08-10] MEDS ORDERED: NOVOLIN R100 U/ML SQ (13:33)
[2018-08-10 13:39] VITALS: BP 121/78; PULSE 85
== END 2018-08-10 14:34 | disposition home or self-care (01) ==
LOC: EUO 12:08
PROVIDERS: Internal Medicine Gastroenterology
DX: K51.00 Ulcerative (chronic) pancolitis without complications (principal); Z79.899 Other long term (current) drug therapy
CPT/HCPCS: J3380; J7050

== ENCOUNTER 2018-10-05 12:26 | Outpatient (CLI) | payer MEDICARE, OTHER ==
[~2018-10-05] VITALS: Ht 170.2 cm; Wt 120.0 kg
[~2018-10-05 12:26] MED LIST changes: +ALLEGRA-D 24HR1 T24 PO; +NOVOLIN R100 U/ML SQ
[2018-10-05 13:05] LABS: HEMOGLOBIN 13.5 g/dl (13.5-18.0); MEAN CELL VOLUME 102 fl (80.0-100.0); MEAN CORPUSCULAR HEMOGLOBIN 33 pg (27.0-31.0); MEAN CORPUSCULAR HGB CONC 33 g/dl (33.0-37.0); MEAN PLATELET VOLUME 9.2 fl (7.4-10.4); PLATELET COUNT 244 K/mm3 (130-400); RED BLOOD COUNT 4.04 M/mm3 (4.20-5.60); REDCELL DISTRIBUTION WIDTH-CV 12.9 % (11.5-14.5)
[2018-10-05] MEDS ORDERED: IRON 27 MG PO (13:32)
[2018-10-05 13:43] VITALS: BP 131/70; PULSE 78; TEMP 97.6
== END 2018-10-05 15:19 | disposition home or self-care (01) ==
LOC: EUO 12:26
PROVIDERS: Internal Medicine Gastroenterology
DX: K51.00 Ulcerative (chronic) pancolitis without complications (principal); Z79.899 Other long term (current) drug therapy
CPT/HCPCS: J3380; J7050

== ENCOUNTER 2018-11-30 12:45 | Outpatient (CLI) | payer MEDICARE, OTHER ==
[~2018-11-30] VITALS: Ht 170.2 cm; Wt 120.5 kg
[~2018-11-30 12:45] MED LIST changes: +IRON 27 MG PO
[2018-11-30 12:55] VITALS: BP 153/78; PULSE 95; TEMP 97.8
[2018-11-30 13:14] LABS: HEMATOCRIT 41.8 % (42.0-52.0); HEMOGLOBIN 13.8 g/dl (13.5-18.0); MEAN CELL VOLUME 102 fl (80.0-100.0); MEAN CORPUSCULAR HEMOGLOBIN 34 pg (27.0-31.0); MEAN CORPUSCULAR HGB CONC 33 g/dl (33.0-37.0); MEAN PLATELET VOLUME 9.4 fl (7.4-10.4); PLATELET COUNT 239 K/mm3 (130-400); RED BLOOD COUNT 4.11 M/mm3 (4.20-5.60); REDCELL DISTRIBUTION WIDTH-CV 13.2 % (11.5-14.5)
== END 2018-11-30 14:57 | disposition home or self-care (01) ==
LOC: EUO 12:45
PROVIDERS: Internal Medicine Gastroenterology
DX: K51.00 Ulcerative (chronic) pancolitis without complications (principal); Z79.899 Other long term (current) drug therapy
CPT/HCPCS: J3380; J7050

== ENCOUNTER 2019-01-31 13:27 | Outpatient (CLI) | payer MEDICARE, OTHER ==
[~2019-01-31] VITALS: Ht 170.2 cm; Wt 121.0 kg
[2019-01-31 14:14] LABS: HEMATOCRIT 40.7 % (42.0-52.0); HEMOGLOBIN 13.5 g/dl (13.5-18.0); MEAN CELL VOLUME 102 fl (80.0-100.0); MEAN CORPUSCULAR HEMOGLOBIN 34 pg (27.0-31.0); MEAN CORPUSCULAR HGB CONC 33 g/dl (33.0-37.0); MEAN PLATELET VOLUME 9.2 fl (7.4-10.4); PLATELET COUNT 239 K/mm3 (130-400); RED BLOOD COUNT 3.98 M/mm3 (4.20-5.60)
[2019-01-31 15:27] VITALS: BP 108/92; PULSE 80; TEMP 98.2
[2019-01-31] MEDS ORDERED: FLONASEALLERGY NS (15:34)
[2019-01-31 16:00] VITALS: BP 108/92; PULSE 78
== END 2019-01-31 16:30 | disposition home or self-care (01) ==
LOC: EUO 13:27
PROVIDERS: Internal Medicine Gastroenterology
DX: K51.00 Ulcerative (chronic) pancolitis without complications (principal); Z79.899 Other long term (current) drug therapy
CPT/HCPCS: J3380; J7050

== ENCOUNTER 2019-03-28 14:58 | Outpatient (CLI) | payer MEDICARE, OTHER ==
[~2019-03-28] VITALS: Ht 170.2 cm; Wt 123.2 kg
[~2019-03-28 14:58] MED LIST changes: +FLONASEALLERGY NS; -GLUCOPHAGE XR500 M1 PO
[2019-03-28 15:19] LABS: HEMOGLOBIN 14.4 g/dl (13.5-18.0); MEAN CELL VOLUME 104 fl (80.0-100.0); MEAN CORPUSCULAR HEMOGLOBIN 34 pg (27.0-31.0); MEAN CORPUSCULAR HGB CONC 33 g/dl (33.0-37.0); MEAN PLATELET VOLUME 9.5 fl (7.4-10.4); PLATELET COUNT 240 K/mm3 (130-400); RED BLOOD COUNT 4.25 M/mm3 (4.20-5.60); REDCELL DISTRIBUTION WIDTH-CV 12.7 % (11.5-14.5)
[2019-03-28 15:29] VITALS: BP 167/78; PULSE 94; TEMP 98.4
[2019-03-28 15:30] VITALS: BP 143/89; PULSE 71; TEMP 98.2
[2019-03-28] MEDS ORDERED: INSULIN 70/3100 U/ML SQ (15:41)
== END 2019-03-28 16:45 | disposition home or self-care (01) ==
LOC: EUO 14:58
PROVIDERS: Internal Medicine Gastroenterology
DX: K51.00 Ulcerative (chronic) pancolitis without complications (principal); Z79.899 Other long term (current) drug therapy
CPT/HCPCS: J3380; J7050

== ENCOUNTER 2019-05-23 13:37 | Outpatient (CLI) | payer MEDICARE, OTHER ==
[~2019-05-23] VITALS: Ht 170.2 cm; Wt 124.4 kg
[~2019-05-23 13:37] MED LIST changes: +INSULIN 70/3100 U/ML SQ
[2019-05-23 13:45] VITALS: BP 164/77; PULSE 85; TEMP 97.9
[2019-05-23 14:05] LABS: HEMATOCRIT 42.4 % (42.0-52.0); HEMOGLOBIN 14.1 g/dl (13.5-18.0); MEAN CELL VOLUME 104 fl (80.0-100.0); MEAN CORPUSCULAR HEMOGLOBIN 35 pg (27.0-31.0); MEAN CORPUSCULAR HGB CONC 33 g/dl (33.0-37.0); MEAN PLATELET VOLUME 9.4 fl (7.4-10.4); PLATELET COUNT 242 K/mm3 (130-400); RED BLOOD COUNT 4.07 M/mm3 (4.20-5.60); REDCELL DISTRIBUTION WIDTH-CV 12.9 % (11.5-14.5)
[2019-05-23] MEDS ORDERED: JARDIANCE10 PO (14:10)
== END 2019-05-23 15:34 | disposition home or self-care (01) ==
LOC: EUO 13:37
PROVIDERS: Internal Medicine Gastroenterology
DX: K51.00 Ulcerative (chronic) pancolitis without complications (principal); Z79.899 Other long term (current) drug therapy
CPT/HCPCS: J3380; J7050

== ENCOUNTER 2019-07-18 13:55 | Outpatient (CLI) | payer MEDICARE, OTHER ==
[~2019-07-18] VITALS: Ht 170.2 cm; Wt 121.8 kg
[~2019-07-18 13:55] MED LIST changes: +JARDIANCE10 PO
[2019-07-18 14:30] VITALS: BP 144/83; PULSE 71; TEMP 99
[2019-07-18 14:30] LABS: HEMATOCRIT 44.6 % (42.0-52.0); HEMOGLOBIN 14.5 g/dl (13.5-18.0); MEAN CELL VOLUME 104 fl (80.0-100.0); MEAN CORPUSCULAR HEMOGLOBIN 34 pg (27.0-31.0); MEAN CORPUSCULAR HGB CONC 33 g/dl (33.0-37.0); MEAN PLATELET VOLUME 9.4 fl (7.4-10.4); PLATELET COUNT 270 K/mm3 (130-400); RED BLOOD COUNT 4.28 M/mm3 (4.20-5.60); REDCELL DISTRIBUTION WIDTH-CV 13.3 % (11.5-14.5)
== END 2019-07-18 16:15 | disposition home or self-care (01) ==
LOC: EUO 13:55
PROVIDERS: Internal Medicine Gastroenterology
DX: K51.00 Ulcerative (chronic) pancolitis without complications (principal); Z79.899 Other long term (current) drug therapy
CPT/HCPCS: J3380; J7050

== ENCOUNTER 2019-09-12 14:14 | Outpatient (CLI) | payer MEDICARE, OTHER ==
[~2019-09-12] VITALS: Ht 170.2 cm; Wt 127.8 kg
[2019-09-12 14:56] LABS: HEMATOCRIT 43.1 % (42.0-52.0); HEMOGLOBIN 14.1 g/dl (13.5-18.0); MEAN CELL VOLUME 103 fl (80.0-100.0); MEAN CORPUSCULAR HEMOGLOBIN 34 pg (27.0-31.0); MEAN CORPUSCULAR HGB CONC 33 g/dl (33.0-37.0); MEAN PLATELET VOLUME 10.2 fl (7.4-10.4); PLATELET COUNT 214 K/mm3 (130-400); RED BLOOD COUNT 4.18 M/mm3 (4.20-5.60); REDCELL DISTRIBUTION WIDTH-CV 13.8 % (11.5-14.5)
[2019-09-12 16:10] VITALS: BP 130/80; PULSE 91; TEMP 98.3
== END 2019-09-12 16:34 | disposition home or self-care (01) ==
LOC: EUO 14:14
PROVIDERS: Internal Medicine Gastroenterology
DX: K51.00 Ulcerative (chronic) pancolitis without complications (principal); Z79.899 Other long term (current) drug therapy
CPT/HCPCS: J3380; J7050

== ENCOUNTER 2019-11-07 13:33 | Outpatient (CLI) | payer MEDICARE, OTHER ==
[~2019-11-07] VITALS: Ht 170.2 cm; Wt 123.6 kg
[2019-11-07] MEDS ORDERED: CLARITIN 1010 MG/TAB PO (14:16)
[2019-11-07 14:29] LABS: HEMATOCRIT 45.2 % (42.0-52.0); HEMOGLOBIN 14.7 g/dl (13.5-18.0); MEAN CELL VOLUME 103 fl (80.0-100.0); MEAN CORPUSCULAR HEMOGLOBIN 34 pg (27.0-31.0); MEAN CORPUSCULAR HGB CONC 33 g/dl (33.0-37.0); MEAN PLATELET VOLUME 9.4 fl (7.4-10.4); PLATELET COUNT 227 K/mm3 (130-400); RED BLOOD COUNT 4.38 M/mm3 (4.20-5.60); REDCELL DISTRIBUTION WIDTH-CV 13.5 % (11.5-14.5)
[2019-11-07 15:40] VITALS: BP 130/84; PULSE 85; TEMP 98.5
== END 2019-11-07 16:40 | disposition home or self-care (01) ==
LOC: EUO 13:33
PROVIDERS: Internal Medicine Gastroenterology
DX: K51.00 Ulcerative (chronic) pancolitis without complications (principal)
CPT/HCPCS: J3380; J7050

== ENCOUNTER 2020-01-02 13:52 | Outpatient (CLI) | payer MEDICARE, OTHER ==
[~2020-01-02] VITALS: Ht 170.2 cm; Wt 125.5 kg
[~2020-01-02 13:52] MED LIST changes: +CLARITIN 1010 MG/TAB PO
[2020-01-02 14:14] LABS: HEMATOCRIT 44.6 % (42.0-52.0); HEMOGLOBIN 14.5 g/dl (13.5-18.0); MEAN CELL VOLUME 104 fl (80.0-100.0); MEAN CORPUSCULAR HEMOGLOBIN 34 pg (27.0-31.0); MEAN CORPUSCULAR HGB CONC 33 g/dl (33.0-37.0); MEAN PLATELET VOLUME 9.6 fl (7.4-10.4); PLATELET COUNT 239 K/mm3 (130-400); RED BLOOD COUNT 4.27 M/mm3 (4.20-5.60)
[2020-01-02 15:35] VITALS: BP 135/75; PULSE 82; TEMP 98.2
[2020-01-02 16:03] VITALS: BP 117/72; PULSE 82; TEMP 98.2
== END 2020-01-02 16:05 | disposition home or self-care (01) ==
LOC: EUO 13:52
PROVIDERS: Internal Medicine Gastroenterology
DX: K51.00 Ulcerative (chronic) pancolitis without complications (principal); Z79.899 Other long term (current) drug therapy
CPT/HCPCS: J3380; J7050

== ENCOUNTER 2020-02-27 13:50 | Outpatient (CLI) | payer MEDICARE, OTHER ==
[~2020-02-27] VITALS: Ht 170.2 cm; Wt 127.3 kg
[2020-02-27 14:14] VITALS: BP 134/87; PULSE 88; TEMP 98.1
[2020-02-27 14:20] LABS: HEMATOCRIT 44.4 % (42.0-52.0); HEMOGLOBIN 14.5 g/dl (13.5-18.0); MEAN CELL VOLUME 106 fl (80.0-100.0); MEAN CORPUSCULAR HEMOGLOBIN 35 pg (27.0-31.0); MEAN CORPUSCULAR HGB CONC 33 g/dl (33.0-37.0); MEAN PLATELET VOLUME 9.9 fl (7.4-10.4); PLATELET COUNT 232 K/mm3 (130-400); REDCELL DISTRIBUTION WIDTH-CV 13.3 % (11.5-14.5)
[2020-02-27 16:38] VITALS: BP 137/80; PULSE 75; TEMP 99.1
== END 2020-02-27 16:00 | disposition home or self-care (01) ==
LOC: EUO 13:50
PROVIDERS: Internal Medicine Gastroenterology
DX: K51.00 Ulcerative (chronic) pancolitis without complications (principal); Z79.899 Other long term (current) drug therapy
CPT/HCPCS: J3380; J7050

== ENCOUNTER 2020-04-23 13:37 | Outpatient (CLI) | payer MEDICARE, OTHER ==
[2020-04-23 14:13] LABS: HEMATOCRIT 44.1 % (42.0-52.0); HEMOGLOBIN 14.6 g/dl (13.5-18.0); MEAN CELL VOLUME 105 fl (80.0-100.0); MEAN CORPUSCULAR HEMOGLOBIN 35 pg (27.0-31.0); MEAN CORPUSCULAR HGB CONC 33 g/dl (33.0-37.0); MEAN PLATELET VOLUME 9.6 fl (7.4-10.4); PLATELET COUNT 237 K/mm3 (130-400); REDCELL DISTRIBUTION WIDTH-CV 13.4 % (11.5-14.5)
[2020-04-23 15:17] VITALS: BP 104/72; PULSE 123; TEMP 98.2
== END 2020-04-23 16:48 | disposition home or self-care (01) ==
LOC: EUO 13:37
PROVIDERS: Internal Medicine Gastroenterology
DX: K51.00 Ulcerative (chronic) pancolitis without complications (principal); Z79.899 Other long term (current) drug therapy
CPT/HCPCS: J3380; J7050

== ENCOUNTER 2020-05-21 09:30 | Outpatient (RCR) | payer MEDICARE, OTHER | END 2020-08-10 11:00 | disposition home or self-care (01) | LOC: WSPT 09:30 | DX: I82.5Z3 Chronic embolism and thrombosis of unspecified deep veins of distal lower extremity, bilateral (principal) ==

== ENCOUNTER 2020-06-18 13:27 | Outpatient (CLI) | payer MEDICARE, OTHER ==
[~2020-06-18] VITALS: Ht 170.2 cm; Wt 124.1 kg
[2020-06-18 14:03] LABS: HEMATOCRIT 46.8 % (42.0-52.0); HEMOGLOBIN 15.5 g/dl (13.5-18.0); MEAN CELL VOLUME 104 fl (80.0-100.0); MEAN CORPUSCULAR HEMOGLOBIN 35 pg (27.0-31.0); MEAN CORPUSCULAR HGB CONC 33 g/dl (33.0-37.0); MEAN PLATELET VOLUME 9.7 fl (7.4-10.4); PLATELET COUNT 239 K/mm3 (130-400); RED BLOOD COUNT 4.49 M/mm3 (4.20-5.60); REDCELL DISTRIBUTION WIDTH-CV 13.5 % (11.5-14.5)
[2020-06-18 14:48] VITALS: BP 110/71; PULSE 81; TEMP 98.8
[2020-06-18 15:24] VITALS: BP 119/75; PULSE 75; TEMP 98.8
== END 2020-06-18 15:25 | disposition home or self-care (01) ==
LOC: EUO 13:27
PROVIDERS: Internal Medicine Gastroenterology
DX: K51.00 Ulcerative (chronic) pancolitis without complications (principal); Z79.899 Other long term (current) drug therapy
CPT/HCPCS: J3380; J7050

== ENCOUNTER 2020-08-13 13:20 | Outpatient (CLI) | payer MEDICARE, OTHER ==
[~2020-08-13] VITALS: Ht 170.2 cm; Wt 124.7 kg
[2020-08-13 13:59] LABS: BASO # 0.1 (0.0-0.2); BASO % 0.6 % (0.0-2.0); EOS # 0.3 (0.0-0.7); EOS % 3.5 % (0-4.0); GRAN # 5.4 (1.4-6.5); GRAN % 70.2 % (42.2-75.2); HEMATOCRIT 45.2 % (42.0-52.0); HEMOGLOBIN 15.1 g/dl (13.5-18.0); LYMPH # 1.4 (1.2-3.4); LYMPH % 17.8 % (20.0-51.0); MEAN CELL VOLUME 104 fl (80.0-100.0); MEAN CORPUSCULAR HEMOGLOBIN 35 pg (27.0-31.0); MEAN CORPUSCULAR HGB CONC 33 g/dl (33.0-37.0); MEAN PLATELET VOLUME 9.5 fl (7.4-10.4); MONO # 0.5 (0.1-0.6); PLATELET COUNT 254 K/mm3 (130-400); RED BLOOD COUNT 4.35 M/mm3 (4.20-5.60); REDCELL DISTRIBUTION WIDTH-CV 13.2 % (11.5-14.5)
[2020-08-13 15:12] VITALS: BP 131/82; PULSE 93
[2020-08-13] MEDS ORDERED: VITAMIN B12 781 TAB PO (15:19)
[2020-08-13 15:30] VITALS: BP 143/86; PULSE 99
[2020-08-13 15:45] VITALS: BP 128/84; PULSE 101; TEMP 98.4
--- NOTE | 2020-08-13 15:50 | NUR ---
INT DC'd with catheter intact. Pt ambulates out from dept, escorted to elevator.
== END 2020-08-13 15:50 | disposition home or self-care (01) ==
LOC: EUO 13:20
PROVIDERS: Internal Medicine Gastroenterology
DX: K51.00 Ulcerative (chronic) pancolitis without complications (principal); Z79.899 Other long term (current) drug therapy
CPT/HCPCS: J3380; J7050

== ENCOUNTER 2020-10-08 13:29 | Outpatient (CLI) | payer MEDICARE, OTHER ==
[~2020-10-08] VITALS: Ht 170.2 cm; Wt 121.9 kg
[~2020-10-08 13:29] MED LIST changes: +VITAMIN B12 781 TAB PO
[2020-10-08 14:27] LABS: BASO % 0.4 % (0.0-2.0); EOS # 0.1 (0.0-0.7); EOS % 0.8 % (0-4.0); GRAN # 6.5 (1.4-6.5); GRAN % 78.3 % (42.2-75.2); HEMATOCRIT 43.3 % (42.0-52.0); HEMOGLOBIN 14.2 g/dl (13.5-18.0); LYMPH # 1.1 (1.2-3.4); LYMPH % 13.7 % (20.0-51.0); MEAN CELL VOLUME 105 fl (80.0-100.0); MEAN CORPUSCULAR HEMOGLOBIN 35 pg (27.0-31.0); MEAN CORPUSCULAR HGB CONC 33 g/dl (33.0-37.0); MEAN PLATELET VOLUME 9.2 fl (7.4-10.4); MONO # 0.5 (0.1-0.6); PLATELET COUNT 220 K/mm3 (130-400); RED BLOOD COUNT 4.12 M/mm3 (4.20-5.60); REDCELL DISTRIBUTION WIDTH-CV 13.2 % (11.5-14.5)
[2020-10-08 15:00] VITALS: BP 119/56; PULSE 87; TEMP 98.6
--- NOTE | 2020-10-08 15:52 | NUR ---
PT TOLERATED INFUSION. APPT MADE IN 8 WEEKS.
== END 2020-10-08 15:53 | disposition home or self-care (01) ==
LOC: EUO 13:29
PROVIDERS: Internal Medicine Gastroenterology
DX: K51.00 Ulcerative (chronic) pancolitis without complications (principal); Z79.899 Other long term (current) drug therapy
CPT/HCPCS: J3380; J7050

== ENCOUNTER 2020-12-04 13:32 | Outpatient (CLI) | payer MEDICARE, OTHER ==
[~2020-12-04] VITALS: Ht 170.2 cm; Wt 122.0 kg
[2020-12-04 14:00] LABS: HEMATOCRIT 44.8 % (42.0-52.0); HEMOGLOBIN 14.8 g/dl (13.5-18.0); MEAN CELL VOLUME 103 fl (80.0-100.0); MEAN CORPUSCULAR HEMOGLOBIN 34 pg (27.0-31.0); MEAN CORPUSCULAR HGB CONC 33 g/dl (33.0-37.0); MEAN PLATELET VOLUME 9.4 fl (7.4-10.4); PLATELET COUNT 236 K/mm3 (130-400); RED BLOOD COUNT 4.36 M/mm3 (4.20-5.60); REDCELL DISTRIBUTION WIDTH-CV 13.3 % (11.5-14.5)
[2020-12-04 14:15] VITALS: BP 148/90; PULSE 84; TEMP 98.9
== END 2020-12-04 16:38 | disposition home or self-care (01) ==
LOC: EUO 13:32
PROVIDERS: Internal Medicine Gastroenterology
DX: K51.00 Ulcerative (chronic) pancolitis without complications (principal); Z79.899 Other long term (current) drug therapy
CPT/HCPCS: J3380; J7050

== ENCOUNTER 2021-01-29 13:24 | Outpatient (CLI) | payer MEDICARE, OTHER ==
[~2021-01-29] VITALS: Ht 170.2 cm; Wt 122.4 kg
[2021-01-29 13:42] VITALS: BP 135/82; PULSE 59; TEMP 97.8
[2021-01-29 13:52] LABS: HEMATOCRIT 44.4 % (42.0-52.0); HEMOGLOBIN 14.4 g/dl (13.5-18.0); MEAN CELL VOLUME 104 fl (80.0-100.0); MEAN CORPUSCULAR HEMOGLOBIN 34 pg (27.0-31.0); MEAN CORPUSCULAR HGB CONC 32 g/dl (33.0-37.0); MEAN PLATELET VOLUME 9.4 fl (7.4-10.4); PLATELET COUNT 228 K/mm3 (130-400); RED BLOOD COUNT 4.26 M/mm3 (4.20-5.60); REDCELL DISTRIBUTION WIDTH-CV 13.2 % (11.5-14.5)
== END 2021-01-29 15:52 ==
LOC: EUO 13:24
PROVIDERS: Internal Medicine Gastroenterology
DX: K51.00 Ulcerative (chronic) pancolitis without complications (principal)
CPT/HCPCS: J3380; J7050

== ENCOUNTER 2021-03-26 13:48 | Outpatient (CLI) | payer MEDICARE, OTHER ==
[~2021-03-26] VITALS: Ht 170.2 cm; Wt 124.1 kg
[2021-03-26 14:46] LABS: BASO # 0.1 K/mm3 (0.0-0.2); BASO % 0.6 % (0.0-2.0); EOS # 0.3 K/mm3 (0.0-0.7); EOS % 3.4 % (0.0-4.0); GRAN # 5.6 K/mm3 (1.4-6.5); GRAN % 68.5 % (42.2-75.2); HEMATOCRIT 41.8 % (42.0-52.0); LYMPH # 1.5 K/mm3 (1.2-3.4); LYMPH % 18.7 % (20.0-51.0); MEAN CELL VOLUME 103 fl (80.0-100.0); MEAN CORPUSCULAR HEMOGLOBIN 34 pg (27-31); MEAN CORPUSCULAR HGB CONC 34 g/dl (33.0-37.0); MEAN PLATELET VOLUME 9.6 fl (7.4-10.4); MONO # 0.7 K/mm3 (0.1-0.6); MONO % 7.9 % (1.7-9.3); PLATELET COUNT 212 K/mm3 (130-400); RED BLOOD COUNT 4.08 M/mm3 (4.20-5.60); REDCELL DISTRIBUTION WIDTH-CV 13.7 % (11.5-14.5)
[2021-03-26 15:06] LABS: ALBUMIN 3.8 gm/dL (3.4-4.8); BILIRUBIN,TOTAL 0.3 mg/dL (0.2-1.2); CALCIUM 9.1 mg/dL (8.4-10.2); CREATININE, serum 1.06 mg/dL (0.72-1.25); POTASSIUM 4.4 mmol/L (3.5-4.5); TOTAL PROTEIN 6.7 gm/dL (6.2-8.1)
[2021-03-26 15:46] VITALS: BP 150/98; PULSE 76; TEMP 98.7
[2021-03-26] MEDS ORDERED: COUMADIN 77.5 MG/TAB PO (16:18)
== END 2021-03-26 16:24 ==
LOC: EUO 13:48
PROVIDERS: Psychiatry & Neurology Neurology
DX: K51.00 Ulcerative (chronic) pancolitis without complications (principal)
CPT/HCPCS: J3380; J7050

== ENCOUNTER 2021-05-21 11:33 | Outpatient (CLI) | payer MEDICARE, OTHER ==
[~2021-05-21] VITALS: Ht 170.2 cm; Wt 121.8 kg
[2021-05-21 11:54] LABS: BASO % 0.4 % (0.0-2.0); EOS # 0.2 K/mm3 (0.0-0.7); GRAN # 4.4 K/mm3 (1.4-6.5); GRAN % 63.2 % (42.2-75.2); HEMATOCRIT 44.1 % (42.0-52.0); HEMOGLOBIN 14.4 g/dl (13.5-18.0); LYMPH # 1.7 K/mm3 (1.2-3.4); LYMPH % 24.9 % (20.0-51.0); MEAN CELL VOLUME 107 fl (80.0-100.0); MEAN CORPUSCULAR HEMOGLOBIN 35 pg (27-31); MEAN CORPUSCULAR HGB CONC 33 g/dl (33.0-37.0); MEAN PLATELET VOLUME 9.6 fl (7.4-10.4); MONO # 0.6 K/mm3 (0.1-0.6); MONO % 8.1 % (1.7-9.3); PLATELET COUNT 209 K/mm3 (130-400); RED BLOOD COUNT 4.12 M/mm3 (4.20-5.60); REDCELL DISTRIBUTION WIDTH-CV 13.4 % (11.5-14.5)
[2021-05-21 12:39] VITALS: BP 135/81; PULSE 71; TEMP 99
--- NOTE | 2021-05-21 14:28 | NUR ---
INT DC'd with catheter intact. Pt ambulates from dept with steady gait.
== END 2021-05-21 14:29 | disposition home or self-care (01) ==
LOC: EUO 11:33
PROVIDERS: Internal Medicine Gastroenterology
DX: K51.00 Ulcerative (chronic) pancolitis without complications (principal); Z79.899 Other long term (current) drug therapy
CPT/HCPCS: J3380; J7050

== ENCOUNTER 2021-07-16 13:20 | Outpatient (CLI) | payer MEDICARE, OTHER ==
[~2021-07-16] VITALS: Ht 170.2 cm; Wt 122.0 kg
[2021-07-16 13:38] LABS: BASO # 0.1 K/mm3 (0.0-0.2); BASO % 0.7 % (0.0-2.0); EOS # 0.3 K/mm3 (0.0-0.7); EOS % 3.5 % (0.0-4.0); GRAN # 4.7 K/mm3 (1.4-6.5); HEMATOCRIT 46.8 % (42.0-52.0); HEMOGLOBIN 15.4 g/dl (13.5-18.0); LYMPH # 1.8 K/mm3 (1.2-3.4); LYMPH % 24.1 % (20.0-51.0); MEAN CELL VOLUME 106 fl (80.0-100.0); MEAN CORPUSCULAR HEMOGLOBIN 35 pg (27-31); MEAN CORPUSCULAR HGB CONC 33 g/dl (33.0-37.0); MEAN PLATELET VOLUME 9.2 fl (7.4-10.4); MONO # 0.5 K/mm3 (0.1-0.6); MONO % 7.2 % (1.7-9.3); PLATELET COUNT 229 K/mm3 (130-400); RED BLOOD COUNT 4.43 M/mm3 (4.20-5.60)
[2021-07-16 14:19] VITALS: BP 112/71; PULSE 77; TEMP 98.3
[2021-07-16] MEDS ORDERED: VOLTAREN GEL 1%1 TU TP (14:27)
[2021-07-16] MEDS ORDERED: NEURONTIN300 MG/CAP PO (14:28)
== END 2021-07-16 14:55 | disposition home or self-care (01) ==
LOC: EUO 13:20
PROVIDERS: Internal Medicine Gastroenterology
DX: K51.00 Ulcerative (chronic) pancolitis without complications (principal)
CPT/HCPCS: J3380; J7050

== ENCOUNTER 2021-09-10 13:16 | Outpatient (CLI) | payer MEDICARE, OTHER ==
[~2021-09-10 13:16] MED LIST changes: +METAMUCIL MULT425 GM PO; +NEURONTIN300 MG/CAP PO; +VOLTAREN GEL 1%1 TU TP
[2021-09-10 13:41] LABS: BASO # 0.1 K/mm3 (0.0-0.2); BASO % 0.7 % (0.0-2.0); EOS # 0.2 K/mm3 (0.0-0.7); EOS % 3.3 % (0.0-4.0); GRAN # 4.4 K/mm3 (1.4-6.5); GRAN % 64.8 % (42.2-75.2); HEMATOCRIT 43.1 % (42.0-52.0); HEMOGLOBIN 14.5 g/dl (13.5-18.0); LYMPH # 1.5 K/mm3 (1.2-3.4); LYMPH % 21.4 % (20.0-51.0); MEAN CELL VOLUME 104 fl (80.0-100.0); MEAN CORPUSCULAR HEMOGLOBIN 35 pg (27-31); MEAN CORPUSCULAR HGB CONC 34 g/dl (33.0-37.0); MEAN PLATELET VOLUME 9.3 fl (7.4-10.4); MONO # 0.6 K/mm3 (0.1-0.6); MONO % 8.9 % (1.7-9.3); PLATELET COUNT 252 K/mm3 (130-400); RED BLOOD COUNT 4.13 M/mm3 (4.20-5.60); REDCELL DISTRIBUTION WIDTH-CV 13.5 % (11.5-14.5)
[2021-09-10 14:20] VITALS: BP 125/80; PULSE 86; TEMP 98.4
== END 2021-09-10 15:16 | disposition home or self-care (01) ==
LOC: EUO 13:16
PROVIDERS: Internal Medicine Gastroenterology
DX: K51.90 Ulcerative colitis, unspecified, without complications (principal)
CPT/HCPCS: J3380; J7050

== ENCOUNTER 2021-11-05 13:32 | Outpatient (CLI) | payer MEDICARE, OTHER ==
[~2021-11-05] VITALS: Ht 170.2 cm; Wt 121.1 kg
[2021-11-05 13:54] LABS: BASO # 0.1 K/mm3 (0.0-0.2); BASO % 0.7 % (0.0-2.0); EOS # 0.3 K/mm3 (0.0-0.7); EOS % 3.9 % (0.0-4.0); GRAN # 4.4 K/mm3 (1.4-6.5); GRAN % 65.4 % (42.2-75.2); HEMATOCRIT 43.1 % (42.0-52.0); HEMOGLOBIN 14.4 g/dl (13.5-18.0); LYMPH # 1.4 K/mm3 (1.2-3.4); LYMPH % 20.6 % (20.0-51.0); MEAN CELL VOLUME 105 fl (80.0-100.0); MEAN CORPUSCULAR HEMOGLOBIN 35 pg (27-31); MEAN CORPUSCULAR HGB CONC 33 g/dl (33.0-37.0); MEAN PLATELET VOLUME 9.4 fl (7.4-10.4); MONO # 0.6 K/mm3 (0.1-0.6); MONO % 8.8 % (1.7-9.3); PLATELET COUNT 218 K/mm3 (130-400); RED BLOOD COUNT 4.09 M/mm3 (4.20-5.60); REDCELL DISTRIBUTION WIDTH-CV 12.9 % (11.5-14.5)
[2021-11-05 15:07] VITALS: BP 132/66; PULSE 79; TEMP 98.5
== END 2021-11-05 15:56 | disposition home or self-care (01) ==
LOC: EUO 13:32
PROVIDERS: Internal Medicine Gastroenterology
DX: K51.00 Ulcerative (chronic) pancolitis without complications (principal)
CPT/HCPCS: J3380; J7050

== ENCOUNTER 2022-04-22 13:05 | Outpatient (CLI) | payer MEDICARE, OTHER ==
[~2022-04-22] VITALS: Ht 170.2 cm; Wt 122.3 kg
[2022-04-22 13:58] VITALS: BP 133/89; PULSE 85; TEMP 97.8
[2022-04-22 14:10] LABS: BASO # 0.1 K/mm3 (0.0-0.2); BASO % 0.8 % (0.0-2.0); EOS # 0.3 K/mm3 (0.0-0.7); EOS % 4.2 % (0.0-4.0); GRAN % 66.3 % (42.2-75.2); HEMATOCRIT 45.3 % (42.0-52.0); HEMOGLOBIN 14.2 g/dl (13.5-18.0); LYMPH # 1.5 K/mm3 (1.2-3.4); LYMPH % 19.9 % (20.0-51.0); MEAN CELL VOLUME 114 fl (80.0-100.0); MEAN CORPUSCULAR HEMOGLOBIN 36 pg (27-31); MEAN CORPUSCULAR HGB CONC 31 g/dl (33.0-37.0); MEAN PLATELET VOLUME 10.2 fl (7.4-10.4); MONO # 0.6 K/mm3 (0.1-0.6); MONO % 7.9 % (1.7-9.3); PLATELET COUNT 220 K/mm3 (130-400); RED BLOOD COUNT 3.99 M/mm3 (4.20-5.60); REDCELL DISTRIBUTION WIDTH-CV 13.3 % (11.5-14.5)
== END 2022-04-22 15:34 ==
LOC: EUO 13:05
PROVIDERS: Internal Medicine Gastroenterology
DX: K51.00 Ulcerative (chronic) pancolitis without complications (principal)
CPT/HCPCS: J3380; J7050

== ENCOUNTER 2022-06-17 12:56 | Outpatient (CLI) | payer MEDICARE, OTHER ==
[~2022-06-17] VITALS: Ht 170.2 cm; Wt 118.6 kg
[2022-06-17 13:19] LABS: HEMATOCRIT 43.8 % (42.0-52.0); HEMOGLOBIN 14.4 g/dl (13.5-18.0); MEAN CELL VOLUME 108 fl (80.0-100.0); MEAN CORPUSCULAR HEMOGLOBIN 36 pg (27-31); MEAN CORPUSCULAR HGB CONC 33 g/dl (33.0-37.0); MEAN PLATELET VOLUME 9.2 fl (7.4-10.4); PLATELET COUNT 234 K/mm3 (130-400); RED BLOOD COUNT 4.06 M/mm3 (4.20-5.60); REDCELL DISTRIBUTION WIDTH-CV 13.2 % (11.5-14.5)
[2022-06-17 14:08] LABS: BAND 5 % (0-10); EOSINOPHIL 2 % (0-4); LYMPHOCYTE 18 % (20.0-51.0); NEUTROPHILS 72 % (42.0-75.2); PLATELET ESTIMATE NORMAL (NORMAL)
[2022-06-17 14:22] VITALS: BP 134/84; PULSE 88; TEMP 98.6
== END 2022-06-17 17:22 | disposition home or self-care (01) ==
LOC: EUO 12:56
PROVIDERS: Internal Medicine Gastroenterology
DX: K51.00 Ulcerative (chronic) pancolitis without complications (principal); Z79.899 Other long term (current) drug therapy
CPT/HCPCS: J3380; J7050

== ENCOUNTER 2023-01-27 13:53 | Outpatient (CLI) | payer MEDICARE, OTHER ==
[~2023-01-27] VITALS: Ht 170.2 cm; Wt 117.6 kg
[2023-01-27 14:11] LABS: BASO # 0.1 K/mm3 (0.0-0.2); BASO % 0.9 % (0.0-2.0); EOS # 0.2 K/mm3 (0.0-0.7); EOS % 3.4 % (0.0-4.0); GRAN # 4.7 K/mm3 (1.4-6.5); GRAN % 66.9 % (42.2-75.2); HEMATOCRIT 44.4 % (42.0-52.0); LYMPH # 1.5 K/mm3 (1.2-3.4); LYMPH % 20.7 % (20.0-51.0); MEAN CELL VOLUME 107 fl (80.0-100.0); MEAN CORPUSCULAR HEMOGLOBIN 36 pg (27-31); MEAN CORPUSCULAR HGB CONC 34 g/dl (33.0-37.0); MONO # 0.5 K/mm3 (0.1-0.6); MONO % 7.4 % (1.7-9.3); PLATELET COUNT 232 K/mm3 (130-400); RED BLOOD COUNT 4.16 M/mm3 (4.20-5.60); REDCELL DISTRIBUTION WIDTH-CV 13.3 % (11.5-14.5)
[2023-01-27 14:50] VITALS: BP 131/77; PULSE 74; TEMP 98.2
== END 2023-01-27 15:25 ==
LOC: EUO 13:53
PROVIDERS: Internal Medicine Gastroenterology
DX: K51.00 Ulcerative (chronic) pancolitis without complications (principal)
CPT/HCPCS: J3380; J7050